=== PATIENT | male | born 1970 | race Caucasian/White ===

== ENCOUNTER 2021-05-15 20:17 | Emergency (ER) | payer BC ==
[~2021-05-15] VITALS: Ht 167.6 cm; Wt 76.2 kg
[2021-05-15 20:33] LABS: URINE BILIRUBIN NEGATIVE (Negative); URINE BLOOD NEGATIVE (Negative); URINE CLARITY CLEAR; URINE COLOR YELLOW; URINE GLUCOSE-RANDOM NEGATIVE (Negative); URINE KETONES NEGATIVE (Negative); URINE LEUKOCYTES NEGATIVE (Negative); URINE NITRITE NEGATIVE (Negative); URINE PROTEIN NEGATIVE (Negative); URINE SPECIFIC GRAVITY <= 1.005 (1.005-1.030); URINE UROBILINOGEN 0.2 E.U./dl (0.2-1.0)
[2021-05-15] MEDS ORDERED: SEROQUEL 100 M100 MG PO (20:36)
[2021-05-15 20:42] LABS: ABSOLUTE BASOPHILS 0.1 thou/uL (0.0-0.2); ABSOLUTE EOSINOPHILS 0.2 thou/uL (0.0-0.7); ABSOLUTE LYMPHOCYTES 1.9 thou/uL (0.8-5.3); ABSOLUTE MONOCYTES 0.3 thou/uL (0.0-1.2); ABSOLUTE NEUTROPHILS 2.7 thou/uL (1.6-8.1); EOSINOPHILS 4.6 %; HEMATOCRIT 38.5 % (42.0-52.0); HEMOGLOBIN 13.1 gm/dL (14.0-18.0); LYMPHOCYTES 35.7 %; MCH 31.7 pg (26.0-34.0); MCHC 34.2 g/dL (28.0-37.0); MCV 92.8 fL (80.0-100.0); MONOCYTES 6.2 %; MPV 6.8 fl. (7.2-11.1); NUCLEATED RBCS 0 /100WBC; PLATELET COUNT* 189 thou/uL (150-400); POLYS 52.5 %; RBC 4.15 mil/uL (4.50-6.00); RDW-CV 13.2 % (10.5-14.5); WBC 5.2 thou/uL (4.0-11.0)
[2021-05-15 20:42] LABS: AMP/METHAMP Negative (Negative); BARBITURATES Negative (Negative); BENZODIAZEPINES Negative (Negative); COCAINE Negative (Negative); METHADONE Negative (Negative); OPIATES Negative (Negative); PCP Negative (Negative); THC Negative (Negative)
[2021-05-15 20:58] LABS: CALCIUM 8.5 mg/dL (8.5-10.1); CREATININE 0.9 mg/dL (0.6-1.3); POTASSIUM 3.2 mmol/L (3.5-5.1)
[2021-05-15 21:03] LABS: ALBUMIN 3.3 g/dL (3.4-5.0); TOTAL BILIRUBIN 0.1 mg/dL (<0.1-1.0); TOTAL PROTEIN 6.7 g/dL (6.4-8.2)
[2021-05-15 21:04] LABS: ALCOHOL 78 mg/dL (<10)
[2021-05-15 21:10] LABS: ACETAMINOPHEN < 2 ug/mL (10-30)
[2021-05-15 21:30] VITALS: BP 108/68
--- NOTE | 2021-05-16 11:43 | EKG ---
[place] [address] ELECTROCARDIOGRAM REPORT Name: ELOINA ROACH Room: 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
== END 2021-05-15 21:30 | disposition home or self-care (01) ==
LOC: M.ERS 20:17
PROVIDERS: Physician Assistant
DX: F32.9 Major depressive disorder, single episode, unspecified (principal); R45.851 Suicidal ideations; F15.90 Other stimulant use, unspecified, uncomplicated; Z79.899 Other long term (current) drug therapy

== ENCOUNTER 2021-05-30 16:23 | Emergency (ER) | payer BC ==
[~2021-05-30] VITALS: Ht 167.6 cm; Wt 74.8 kg
[~2021-05-30 16:23] MED LIST: SEROQUEL 100 M100 MG PO
[2021-05-30] MEDS ORDERED: OXYMORPHONE HCL5 M1 PO (16:30)
[2021-05-30] MEDS ORDERED: LEVO-T25 MCG PO (16:30)
[2021-05-30] MEDS ORDERED: LYRICA25 MG PO (16:31)
[2021-05-30] MEDS ORDERED: VRAYLAR1.5 MG PO (16:31)
[2021-05-30] MEDS ORDERED: CEPHALEXIN500 MG PO (18:01)
[2021-05-30] MEDS ORDERED: APAP W/CODEINE1 TA2 PO (18:01)
[2021-05-30 18:11] VITALS: BP 124/74
== END 2021-05-30 18:18 | disposition home or self-care (01) ==
LOC: M.ERS 16:23
DX: S61.011A Laceration without foreign body of right thumb without damage to nail, initial encounter (principal); F17.210 Nicotine dependence, cigarettes, uncomplicated; Z98.890 Other specified postprocedural states; Z98.84 Bariatric surgery status; Z90.49 Acquired absence of other specified parts of digestive tract; Z79.899 Other long term (current) drug therapy; W31.89XA Contact with other specified machinery, initial encounter; Y93.89 Activity, other specified; Y92.89 Other specified places as the place of occurrence of the external cause; Y99.8 Other external cause status